=== PATIENT | female | born 1995 | race American Indian/Alaskan Native ===

== ENCOUNTER 2018-03-30 19:55 | Emergency (ER) | payer SELFPAY ==
[2018-03-30 20:37] VITALS: BP 124/92
[2018-03-30] MEDS ORDERED: ZOFRAN IM ONE (21:34)
[2018-03-30] MEDS ORDERED: SUBLIMAZE IM ONE (21:34)
[2018-03-30] MEDS ORDERED: FIORICET PO ONE (21:35)
--- NOTE | 2018-03-30 21:42 | Emergency Department Report ---
HPI - General Chief Complaint: Headache Time Seen by Provider: 03/30/18 21:33 - HPI HPI: Room 38 The patient is a 22-year-old female presented with a chief complaint of headache. The patient states for the past 3 days she's had a constant diffuse headache greatest in the bitemporal regions and occiput. Patient states the pain feels like a pressure. The patient states Excedrin Migraine helps temporarily but the pain returns. The patient is to nausea but denies vomiting. Patient states the headache is worse in the morning when she awakens. Patient denies any preceding trauma or history of fever. The patient currently gives her pain a score of 7/10 Location: Head Duration:3 days Quality: Pressure Severity: 7/10 Modifying factors: [see above] Context: [see above] Mode of transportation: [not driving] ED Past Medical Hx - Past Medical History Previous Medical History?: Yes Hx Asthma: Yes (as child) - Surgical History Past Surgical History?: No - Family History Family history: no significant - Social History Smoking Status: Never Smoker Substance Use Type: None (denies illicit drug use), Alcohol (occasional) - Medications Home Medications: Home Medications Medication Instructions Recorded Confirmed Last Taken Type Butalb/Acetamin/Caff 50-325-40 2 tab PO Q8H PRN #20 tab 03/30/18 Unknown Rx [Fioricet] ED Review of Systems ROS: Stated complaint: MIGRAINE FOR 3 DAYS VISION BLURRY AND DIZZINESS Other details as noted in HPI Constitutional: denies: fever Eyes: denies: eye pain ENT: denies: throat pain Respiratory: no symptoms reported Cardiovascular: denies: chest pain Endocrine: no symptoms reported Gastrointestinal: nausea. denies: vomiting Genitourinary: denies: dysuria Musculoskeletal: myalgia Neurological: headache Physical Exam - Physical Exam Vital Signs: Vital Signs 03/30/18 20:30 Temperature 99.7 F H Pulse Rate 91 H Respiratory 16 Rate Blood Pressure 124/92 O2 Sat by Pulse 100 Oximetry Physical Exam: GENERAL: The patient is well-developed well-nourished female sitting in chair not appearing to be in acute distress. [] HEENT: Normocephalic. Atraumatic. Extraocular motions are intact. Patient has moist mucous membranes. NECK: Supple. No meningitic signs are noted. There is no nuchal rigidity CHEST/LUNGS: Clear to auscultation. There is no respiratory distress noted. HEART/CARDIOVASCULAR: Regular. There is no tachycardia. There is no gallop rub or murmur. ABDOMEN: Abdomen is soft, nontender. Patient has normal bowel sounds. There is no abdominal distention. SKIN: There is no rash. There is no edema. There is no diaphoresis. NEURO: The patient is awake, alert, and oriented. The patient is cooperative. The patient has no focal neurologic deficits. The patient has normal speech. Cranial nerves II through XII grossly intact, no drift MUSCULOSKELETAL: There is no evidence of acute injury. ED Course Vital Signs 03/30/18 20:30 Temperature 99.7 F H Pulse Rate 91 H Respiratory 16 Rate Blood Pressure 124/92 O2 Sat by Pulse 100 Oximetry - Reevaluation(s) Reevaluation #1: 03/30/18 23:09 Patient states she feels improved ED Medical Decision Making - Radiology Data Radiology results: report reviewed (CT head), image reviewed (CT head) [place] [address] Cat Scan Report Signed Patient: MAHAMED GREEN MR#: [id number] : 1995 Acct:[id number] Age/Sex: 22 / F ADM Date: 03/30/18 Loc: ED Attending Dr: Ordering Physician: BRIE CORONA MD Date of Service: 03/30/18 Procedure(s): CT head/brain wo con Accession Number(s): [id number] cc: BRIE CORONA MD FINAL REPORT EXAM: CT HEAD/BRAIN WO CON HISTORY: headache TECHNIQUE: 2.5 millimeter axial images from the skullbase to the vertex. Comparison: None FINDINGS: There is no evidence of an acute intracranial process, intracranial hemorrhage or mass effect. The ventricles are normal size. The visualized portions of the orbits, paranasal and mastoid sinuses are unremarkable. The bony structures are unremarkable in appearance. IMPRESSION: 1. No evidence of an acute intracranial process, intracranial hemorrhage or mass effect. If further imaging is required, MRI may be helpful. Transcribed By: ED Dictated By: FRANKLIN CHO MD Electronically Authenticated By: FRANKLIN CHO MD Signed Date/Time: 03/30/182299 DD/ 01 TD/TT: 03/30/182301 - Differential Diagnosis headache, migraine, intracranial mass, ICH Critical care attestation.: If time is entered above; I have spent that time in minutes in the direct care of this critically ill patient, excluding procedure time. ED Disposition Clinical Impression: Headache Disposition: DC- TO HOME OR SELFCARE Is pt being admited?: No Does the pt Need Aspirin: No Condition: Stable Instructions: Acute Headache (ED) Additional Instructions: Return to the emergency department immediately should you develop worsening symptoms, fever, inability to tolerate food or liquid or any other concerns. Prescriptions: Butalb/Acetamin/Caff 50-325-40 [Fioricet] 2 tab PO Q8H PRN #20 tab PRN Reason: Headache Referrals: TI HOBBS MD [Primary Care Provider] - 3-5 Days GALO MORATAYA MD [Staff Physician] - [facility] (Dr Morataya is a neurologist. Please follow-up with him for further evaluation of your headaches) Time of Disposition: 23:14
[2018-03-30 22:12] LABS: HCG Qualitative,Urine Negative (Negative)
--- NOTE | 2018-03-30 23:00 | Cat Scan Report ---
FINAL REPORT EXAM: CT HEAD/BRAIN WO CON HISTORY: headache TECHNIQUE: 2.5 millimeter axial images from the skullbase to the vertex. Comparison: None FINDINGS: There is no evidence of an acute intracranial process, intracranial hemorrhage or mass effect. The ventricles are normal size. The visualized portions of the orbits, paranasal and mastoid sinuses are unremarkable. The bony structures are unremarkable in appearance. IMPRESSION: 1. No evidence of an acute intracranial process, intracranial hemorrhage or mass effect. If further imaging is required, MRI may be helpful.
== END 2018-03-30 23:24 | disposition home or self-care (01) ==
LOC: ED 19:55
DX: G43.909 Migraine, unspecified, not intractable, without status migrainosus (principal); J45.909 Unspecified asthma, uncomplicated; M79.10 Myalgia, unspecified site; Z91.030 Bee allergy status
CPT/HCPCS: 70450; 81025; 96372; 99284; J2405; J3010